=== PATIENT | female | born 1940 | race Caucasian/White ===

== ENCOUNTER 2017-04-22 12:10 | Emergency (ER) | payer OTHER ==
[~2017-04-22] VITALS: Ht 152.4 cm; Wt 68.0 kg
[2017-04-22] MEDS ORDERED: FLEXERIL10 MG PO (15:35)
[2017-04-22] MEDS ORDERED: MOBIC7.5 MG PO (15:35)
[2017-04-22] MEDS ORDERED: PERCOCET 5/31 TABLET PO (15:35)
[2017-04-22] MEDS ORDERED: LIDODERM 5% P1 PATCH TD (15:35)
[2017-04-22 16:25] VITALS: BP 183/87
== END 2017-04-22 16:29 | disposition home or self-care (01) ==
LOC: EME 12:10
DX: M54.42 Lumbago with sciatica, left side (principal); I10 Essential (primary) hypertension
CPT/HCPCS: 72100; 99281; 99285; J3010